=== PATIENT | female | born 1960 | race Caucasian/White ===

== ENCOUNTER 2017-12-11 12:42 | Emergency (ER) | payer BC ==
[2017-12-11] MEDS ORDERED: Ondansetron 4 MG/2 ML SDV IVPUSH ONE ×2 (13:52→16:49)
--- NOTE | 2017-12-11 13:58 | EDM.PDOC ---
ED HPI GENERAL MEDICAL PROBLEM - General Chief Complaint: General Stated Complaint: WEAK TIRED NAUSA W/STOMACH PAIN Time Seen by Provider: 12/11/17 13:53 Source of Information: Reports: Patient, Family History Limitations: Reports: No Limitations - History of Present Illness INITIAL COMMENTS - FREE TEXT/NARRATIVE: pt arrived with pain in the suprapupic area. She has not felt well since . She has a low grade nausea. She has not vomited. She has no burning on urination. Onset: Other ( . ) Duration: Day(s): Location: Reports: Abdomen Associated Symptoms: Reports: Diaphoresis, Loss of Appetite, Nausea/Vomiting, Other ( Pt normally runs a low bp. 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: Endocrine/Metabolic History: Reports: Hypothyroidism Social & Family History - Family History Cardiac: Reports: [place] - Tobacco Use Smoking Status *Q: Never Smoker - Recreational Drug Use Recreational Drug Use: No ED ROS GENERAL - Review of Systems Review Of Systems: See Below Constitutional: Reports: Weakness, Diaphoresis HEENT: Reports: No Symptoms Respiratory: Reports: No Symptoms Cardiovascular: Reports: No Symptoms Endocrine: Reports: No Symptoms GI/Abdominal: Reports: No Symptoms : Reports: No Symptoms Musculoskeletal: Reports: No Symptoms Skin: Reports: No Symptoms ED EXAM, GENERAL - Physical Exam Exam: See Below Free Text/Narrative:: pt arrived after being ill since . She now has suprapupic pain. She is feeling nauseated but she has not vomited. She has been having stools. She has no dysuria. Exam Limited By: No Limitations General Appearance: Alert, Moderate Distress Ears: Normal TMs Nose: Normal Inspection Throat/Mouth: Normal Inspection Head: Atraumatic Neck: Normal Inspection Respiratory/Chest: No Respiratory Distress Cardiovascular: Regular Rate, Rhythm, Other ( Pt has been sweaty but she has not had chest pain. ) GI/Abdominal: Tender, Other (pt is tender in the suprapupic ) (Female) Exam: Deferred Rectal (Female) Exam: Deferred Back Exam: Normal Inspection Extremities: Normal Inspection Neurological: Alert, Oriented, Normal Cognition Course - Vital Signs Last Recorded V/S: Last Vital Signs Temp 36.2 C 12/11/17 12:50 Pulse 83 12/11/17 12:50 Resp 16 12/11/17 12:50 BP 107/44 L 12/11/17 12:50 Pulse Ox 95 12/11/17 12:50 - Orders/Labs/Meds Orders: Active Orders 24 hr Category Date Time Status EKG Documentation Completion [RC] ASDIRECTED Care 12/11/17 13:57 Active Abdomen Pelvis w Cont [CT] Stat Exams 12/11/17 14:33 Taken Pelvis Non OB Ltd [US] Stat Exams 12/11/17 16:02 Ordered Transvaginal Non OB [US] Stat Exams 12/11/17 16:02 Ordered UA W/MICROSCOPIC [URIN] Urgent Lab 12/11/17 13:06 Ordered Iopamidol [Isovue-300 (61%)] Med 12/11/17 14:39 Active 100 ml IV . DIRECTED PRN Sodium Chloride 0.9% [Normal Saline] 1,000 ml Med 12/11/17 14:00 Active IV ASDIRECTED Sodium Chloride 0.9% [Normal Saline] 70 ml Med 12/11/17 14:45 Active IV ASDIRECTED EKG 12 Lead [EK] Routine Ther 12/11/17 13:57 Ordered Medication Orders Sodium Chloride (Normal Saline) 1,000 mls @ 999 mls/hr IV ASDIRECTED [facility] Last Admin: 12/11/17 14:15 Dose: 999 mls/hr Sodium Chloride (Normal Saline) 70 mls @ 3 mls/sec IV ASDIRECTED NEYMAR Stop: 12/11/17 23:00 Iopamidol (Isovue-300 (61%)) 100 ml IV . DIRECTED PRN PRN Reason: RADIOLOGY EXAM Stop: 12/12/17 14:40 Labs: Laboratory Tests 12/11/17 12/11/17 12/11/17 Range/Units 13:06 13:08 13:08 WBC 6.2 (4.5-11.0) K/uL RBC 4.76 (3.30-5.50) M/uL Hgb 14.1 (12.0-15.0) g/dL Hct 43.3 (36.0-48.0) % MCV 91 (80-98) fL MCH 30 (27-31) pg MCHC 33 (32-36) % Plt Count 204 (150-400) K/uL Neut % (Auto) 79 H (36-66) % Lymph % (Auto) 12 L (24-44) % [place] % (Auto) 7 H (2-6) % Eos % (Auto) 1 L (2-4) % Baso % (Auto) 1 (0-1) % Sodium 143 (140-148) mmol/L Potassium 3.9 (3.6-5.2) mmol/L Chloride 108 (100-108) mmol/L Carbon Dioxide 26 (21-32) mmol/L Anion Gap 8.7 (5.0-14.0) mmol/L BUN 26 H (7-18) mg/dL Creatinine 1.0 (0.6-1.0) mg/dL Est Cr Clr Drug Dosing 52.31 mL/min Estimated GFR (MDRD) 57 L (>60) Glucose 103 (74-106) mg/dL Calcium 8.0 L (8.5-10.1) mg/dL Total Bilirubin 0.3 (0.2-1.0) mg/dL AST 29 (15-37) U/L ALT 39 (12-78) U/L Alkaline Phosphatase 73 (46-116) U/L Troponin I (0.000-0.056) ng/mL C-Reactive Protein (0.0-0.3) mg/dL Total Protein 6.4 (6.4-8.2) g/dL Albumin 3.3 L (3.4-5.0) g/dL Globulin 3.1 (2.3-3.5) g/dL Albumin/Globulin Ratio 1.1 L (1.2-2.2) TSH, Ultra Sensitive (0.358-3.740) uIU/mL Urine Color Yellow Urine Appearance Slightly cloudy Urine pH 5.0 (4.5-8.0) Ur Specific [place] 1.015 (1.008-1.030) Urine Protein Negative (NEGATIVE) mg/dL Urine Glucose (UA) Normal (NEGATIVE) mg/dL Urine Ketones Negative (NEGATIVE) mg/dL Urine Occult Blood Moderate (NEGATIVE) Urine Nitrite Negative (NEGATIVE) Urine Bilirubin Small (NEGATIVE) Urine Urobilinogen 1 (NORMAL) mg/dL Ur Leukocyte Esterase Small (NEGATIVE) Urine RBC 10-20 H (0-5) Urine WBC 0-5 (0-5) Ur Epithelial Cells Few Amorphous Sediment Not seen Urine Bacteria Rare Urine Mucus Rare 12/11/17 12/11/17 12/11/17 Range/Units 13:51 13:52 13:57 WBC (4.5-11.0) K/uL RBC (3.30-5.50) M/uL Hgb (12.0-15.0) g/dL Hct (36.0-48.0) % MCV (80-98) fL MCH (27-31) pg MCHC (32-36) % Plt Count (150-400) K/uL Neut % (Auto) (36-66) % Lymph % (Auto) (24-44) % [place] % (Auto) (2-6) % Eos % (Auto) (2-4) % Baso % (Auto) (0-1) % Sodium (140-148) mmol/L Potassium (3.6-5.2) mmol/L Chloride (100-108) mmol/L Carbon Dioxide (21-32) mmol/L Anion Gap (5.0-14.0) mmol/L BUN (7-18) mg/dL Creatinine (0.6-1.0) mg/dL Est Cr Clr Drug Dosing mL/min Estimated GFR (MDRD) (>60) Glucose (74-106) mg/dL Calcium (8.5-10.1) mg/dL Total Bilirubin (0.2-1.0) mg/dL AST (15-37) U/L ALT (12-78) U/L Alkaline Phosphatase (46-116) U/L Troponin I < 0.017 (0.000-0.056) ng/mL C-Reactive Protein 0.83 H (0.0-0.3) mg/dL Total Protein (6.4-8.2) g/dL Albumin (3.4-5.0) g/dL Globulin (2.3-3.5) g/dL Albumin/Globulin Ratio (1.2-2.2) TSH, Ultra Sensitive 0.887 (0.358-3.740) uIU/mL Urine Color Urine Appearance Urine pH (4.5-8.0) Ur Specific [place] (1.008-1.030) Urine Protein (NEGATIVE) mg/dL Urine Glucose (UA) (NEGATIVE) mg/dL Urine Ketones (NEGATIVE) mg/dL Urine Occult Blood (NEGATIVE) Urine Nitrite (NEGATIVE) Urine Bilirubin (NEGATIVE) Urine Urobilinogen (NORMAL) mg/dL Ur Leukocyte Esterase (NEGATIVE) Urine RBC (0-5) Urine WBC (0-5) Ur Epithelial Cells Amorphous Sediment Urine Bacteria Urine Mucus Meds: Medications Generic Name Dose Route Start Last Admin Trade Name Freq PRN Reason Stop Dose Admin Sodium Chloride 1,000 mls @ 999 mls/hr 12/11/17 14:00 12/11/17 14:15 Normal Saline IV 999 mls/hr ASDIRECTED NEYMAR Administration Sodium Chloride 70 mls @ 3 mls/sec 12/11/17 14:45 Normal Saline IV 12/11/17 23:00 ASDIRECTED NEYMAR Iopamidol 100 ml 12/11/17 14:39 Isovue-300 (61%) IV 12/12/17 14:40 . DIRECTED PRN RADIOLOGY EXAM Discontinued Medications Generic Name Dose Route Start Last Admin Trade Name Freq PRN Reason Stop Dose Admin Ondansetron HCl 4 mg 12/11/17 13:52 12/11/17 14:15 Zofran IVPUSH 12/11/17 13:53 4 mg ONETIME ONE Administration Ondansetron HCl 4 mg 12/11/17 16:49 Zofran IVPUSH 12/11/17 16:50 ONETIME ONE - Re-Assessments/Exams Free Text/Narrative Re-Assessment/Exam: 12/11/17 16:50 pt had a normal wbc/ She did have some rbcs in her urine but no bacteria/ She has been persistently nauseated. She had a cat scan of the abdoman which showed thickenly along the rt side of the vaginia. She has had a repair of the infected bartolin cyst x2. This could be scarring. She had a US which showed borderline endometrium and showed no extension of any mass into the pelvis otherwise. The cat scan was otherwise normal. Departure - Departure Time of Disposition: 16:54 Disposition: Home, Self-Care 01 Condition: Fair Clinical Impression: Viral illness, Vaginal wall cyst - Discharge Information Referrals: PCP,None [Primary Care Provider] - Forms: ED Department Discharge Care Plan Goals: appt with usual practitioner for routine pelvic--recheck the rt vaginal wall thickening-- see the results of the pelvic us and cat scan of the abdoman. zoforan 4 mg subling as needed for nausea - My Orders Last 24 Hours: My Active Orders 12/11/17 13:06 UA W/MICROSCOPIC [URIN] Urgent 12/11/17 13:57 EKG Documentation Completion [RC] ASDIRECTED EKG 12 Lead [EK] Routine 12/11/17 14:00 Sodium Chloride 0.9% [Normal Saline] 1,000 ml IV ASDIRECTED 12/11/17 14:33 Abdomen Pelvis w Cont [CT] Stat 12/11/17 14:39 Iopamidol [Isovue-300 (61%)] 100 ml IV . DIRECTED PRN 12/11/17 14:45 Sodium Chloride 0.9% [Normal Saline] 70 ml IV ASDIRECTED 12/11/17 16:02 Pelvis Non OB Ltd [US] Stat Transvaginal Non OB [US] Stat - Assessment/Plan Last 24 Hours: My Active Orders 12/11/17 13:06 UA W/MICROSCOPIC [URIN] Urgent 12/11/17 13:57 EKG Documentation Completion [RC] ASDIRECTED EKG 12 Lead [EK] Routine 12/11/17 14:00 Sodium Chloride 0.9% [Normal Saline] 1,000 ml IV ASDIRECTED 12/11/17 14:33 Abdomen Pelvis w Cont [CT] Stat 12/11/17 14:39 Iopamidol [Isovue-300 (61%)] 100 ml IV . DIRECTED PRN 12/11/17 14:45 Sodium Chloride 0.9% [Normal Saline] 70 ml IV ASDIRECTED 12/11/17 16:02 Pelvis Non OB Ltd [US] Stat Transvaginal Non OB [US] Stat
[2017-12-11] MEDS ORDERED: Sodium Chloride 0.9% 1,000 ML IV SCH (14:00)
[2017-12-11] MEDS ORDERED: Iopamidol 612 MG/ML 100 ML Bottle IV PRN (14:39)
--- NOTE | 2017-12-13 11:29 | US ---
Pelvis Non OB Ltd INDICATION: on cat scan a mass to the rt of the vaginia. TECHNIQUE: Transabdominal and transvaginal pelvic ultrasound performed. COMPARISON: None FINDINGS: The uterus is unremarkable. No evidence of mass. Endometrium: 7 mm. Neither ovary identified. No adnexal masses. No free fluid seen in the pelvis. No vaginal mass seen. IMPRESSION: No vaginal mass seen. Recommend follow-up based on clinical exam. Endometrium measures 7 mm which is thickened for postmenopausal state.
--- NOTE | 2017-12-13 12:35 | US ---
Transvaginal Non OB INDICATION: mass by the vaginia TECHNIQUE: Transabdominal and transvaginal pelvic ultrasound performed. COMPARISON: CT 12/11/2017 FINDINGS: No mass seen by the vagina. See full report for pelvic ultrasound exam.
== END 2017-12-11 17:32 | disposition home or self-care (01) ==
LOC: JP.ED 12:42
DX: N89.8 Other specified noninflammatory disorders of vagina (principal); B34.9 Viral infection, unspecified; E03.9 Hypothyroidism, unspecified
CPT/HCPCS: 36415; 74177; 76830; 76857; 80053; 81001; 84443; 84484; 85025; 86140; 93005; 96361; 96374; 96375; 99285; J2405; J7040